=== PATIENT | female | born 2000 | race Caucasian/White ===

== ENCOUNTER 2024-08-22 12:40 | Emergency (ER) | payer MEDICAID, SELFPAY ==
[2024-08-22] VITALS (10 sets, daily range): BP systolic 92–132; BP diastolic 55–90; PULSE 95–132; RESP 16–20; TEMP 37; O2SAT 97–100; BMI 24.9; BMI 26.5
[2024-08-22 13:16] LABS: UTC Influenza A Antigen Negative (Negative)
[2024-08-22 13:17] LABS: UTC Influenza B Antigen Negative (Negative)
--- NOTE | 2024-08-22 13:20 | EXP.UTC ---
Discharge Plan Disposition Patient Disposition: Home, Self-Care Condition: Good Prescriptions Prescriptions: New doxycycline hyclate 100 mg capsule 100 mg PO BID 10 Days Qty: 20 0RF Referrals Follow up/Referrals: Provider,Referral, MD [Primary Care Provider] - See instructions Activity Restrictions/Add. Instructions Additional Instructions/Restrictions: Follow-up with your PCP within 48 hours for recheck. If you have any worsening signs or symptoms return to the ER as needed. Clinical Impressions Clinical Impression: Abdominal pain, acute Stand Alone Forms Stand Alone Forms: Work/School Release Instructions Patient Instructions: DI for Acute Abdominal Pain Print Language Print Language: Thai Discharge ED Provider: Domonique Montez [facility] HPI <[place] APRN - Last Filed: 08/22/24 20:19> General Chief complaint: Abdominal Pain Stated complaint: v/d chills headache cough Mode of Arrival: Ambulatory Source of Information: Patient Limitations: No Limitations Time Seen by Provider: 08/22/24 13:20 Description of Symptoms (Recalled from Triage Doc. by RN): PATIENT C/O VOMITING, CHILLS, HEADACHE, AND STOMACH PAIN THAT STARTED LAST NIGHT HEENT Symptoms (Recalled from RN notes): Yes Resp Symptoms (Recalled from RN notes): No Skin Symptoms (Recalled from RN notes): No MS Symptoms (Recalled from RN notes): No Functional Status (Recalled from RN notes): WNL History of Present Illness Provider Complaint: Patient states that her brother tested positive for flu yesterday States that she woke up in the middle of the night with chills, stomach pain, headache and N/V States that she took zofran and it did help with her vomiting but her stomach is killing her states that stomach hurts all over Related Data Previous Rx's ?Medication ?Instructions ?Recorded doxycycline hyclate 100 mg capsule 100 mg PO BID 10 days #20 caps 08/22/24 Allergies Allergy/AdvReac Type Severity Reaction Status Date / Time No Known Allergies Allergy Verified 08/22/24 13:05 Worker's Comp Is this a Worker's Comp case?: No PFSH <[place] APRN - Last Filed: 08/22/24 20:19> [facility] Disclaimer: The information contained in this section may have been updated after the patient was seen, as this information can be updated by other users. Medical History (Updated 08/22/24 @ 17:23 by AMANDA Titus) Seizures Anxiety Surgical History (Updated 08/22/24 @ 13:06 by Meredith Dominguez RN) History of cholecystectomy Social History (Updated 08/22/24 @ 17:32 by AMANDA Titus) Smoking Status: Current every day smoker alcohol intake: current current occupational status: employed Travel in the last 8 weeks: None Have you lived/traveled outside US in past 30 days?: No Contact w/someone who lives/traveled outside US past 30 days?: No Exposure to someone with infectious disease in past 14 days?: No Do you have a fever (greater than 100.4 F or 38 C)?: No Have you tested positive for COVID-19: No Exposed to someone with COVID-19 in past 14 days?: No Do you have a sore throat?: Yes Do you have a cough?: Yes Do you have any weakness?: No Do you have any diarrhea?: No Are you experiencing any unusual bleeding?: No Do you have any muscle aches/pain?: No Do you have any abdominal pain?: No Are you experiencing loss of taste or smell?: No <[place] APRN - Last Filed: 08/22/24 20:19> ROS Obtained: Yes All systems reviewed & no additional complaints except as documented and Yes Systems reviewed as appropriate & no additional complaints except as documented Constitutional Constitutional: Reports system reviewed and no additional complaints, except as documented, Reports as per HPI, Reports chills, Reports fever(s) and Reports headache(s) ENT Ears, Nose, Mouth, and Throat: Reports system reviewed and no additional complaints, except as documented, Reports as per HPI and Reports headache(s) Cardiovascular Cardiovascular: Reports system reviewed and no additional complaints, except as documented and Reports as per HPI Respiratory Respiratory: Reports system reviewed and no additional complaints, except as documented and Reports as per HPI Gastrointestinal Gastrointestingal: Reports system reviewed and no additional complaints, except as documented, as per HPI, abdominal pain, nausea and vomiting (took zofran prior to arrival ) Neurologic Neurologic: Reports headache(s) Physical Exam <C[place]el [place] APRN - Last Filed: 08/22/24 20:19> General General appearance: alert and anxious (rocking on exam table holding stomach crying) Respiratory Respiratory exam: Present normal lung sounds bilaterally; Absent respiratory distress or wheezes Cardiovascular Cardiovascular exam: Present regular rate and tachycardia Abdominal Exam Abdominal exam: Present soft and tenderness (reports diffuse pain and tenderness with palpation) Neurological Exam Neurological exam: Present alert and oriented X3 Medical Decision Making <[place] APRN - Last Filed: 08/22/24 20:19> Medical Records Screening: Per USPSTF and CDC recommendations, given the prevalence of disease in our region, it is our hospital?s policy to screen for HIV and viral Hepatitis for all patients aged 18 and over and those with ongoing risk factors. Varghese Inquiry Pt receiving controlled substance: No V[place]se was queried for this patient: No Vital Signs: 08/22/24 12:55 Temperature 98.6 F Temperature Source Oral Pulse Rate [Left Brachial] 132 H Respiratory Rate 19 Blood Pressure [Left Arm] 110/76 Blood Pressure Mean [Left Arm] 87 Blood Pressure Source [Left Arm] Automatic Cuff Blood Pressure Position [Left Arm] Sitting 02 Sat by Pulse Oximetry 98 Oxygen Delivery Method Room Air Lab Data Lab results reviewed: Yes I reviewed the patient's lab results. Lab Results 08/22/24 12:58: Influenza Type A Ag Negative, Influenza Type B Ag Negative 08/22/24 13:35 08/22/24 13:35 Medical Decision Narrative: Patient holding stomach, crying saying that her stomach was killing her States she awoke in the middle of the night with stomach pain, chills, and n/v had zofran at home and took on prior to arrival and it did help with vomiting but still having stomach pain, states stomach hurts all over HR elevated, discussed with patient and will transfer to the ED Called Ed and patient moved to the ED for further work up and evaluation <AMANDA Titus - Last Filed: 08/22/24 17:29> Medical Records Medical records reviewed: Yes I reviewed the patient's medical records. Vital Signs: 08/22/24 12:55 Temperature 98.6 F Temperature Source Oral Pulse Rate [Left Brachial] 132 H Respiratory Rate 19 Blood Pressure [Left Arm] 110/76 Blood Pressure Mean [Left Arm] 87 Blood Pressure Source [Left Arm] Automatic Cuff Blood Pressure Position [Left Arm] Sitting 02 Sat by Pulse Oximetry 98 Oxygen Delivery Method Room Air Lab Data Lab Results 08/22/24 12:58: Influenza Type A Ag Negative, Influenza Type B Ag Negative
--- NOTE | 2024-08-22 13:25 | PC.NURSE ---
PATIENT SENT TO ER PER Josue BLANKENSHIP APRN FOR FURTHER EVALUATION. REPORT GIVEN TO DR. PEACE BY Josue BLANKENSHIP APRN. PATIENT AMBULATED TO ER WITH [facility] AT THIS TIME. FAMILY AT BEDSIDE
--- NOTE | 2024-08-22 13:40 | CT_ITS ---
FINAL REPORT TECHNIQUE: After the administration of intravenous contrast, axial images were obtained through the abdomen and pelvis by computed tomography. The study was performed with techniques to keep radiation dose as low as reasonably achievable, (ALARA). Individual dose reduction techniques using automated exposure control or adjustment of mA and/or kV according to the patient's size were employed. CLINICAL HISTORY: Suprapubic abdominal pain COMPARISON: None FINDINGS: Abdomen: The lung bases are clear. There is fatty infiltration of the liver. The gallbladder is absent. The spleen, pancreas, adrenals and kidneys appear unremarkable. The aorta is normal in caliber. There is no free fluid or adenopathy. Pelvis: The appendix measures 6 mm. The uterus is anteverted. There is no pelvic inflammation. The urinary bladder is unremarkable. There is no free fluid or adenopathy. IMPRESSION: Fatty liver without acute intra-abdominal process. Reviewed, Interpreted and Dictated by Bib Bahena MD Transcribed by Francisca Berger Authenticated and [facility]
--- NOTE | 2024-08-22 13:40 | ED_ITS ---
<Statement entered by Domonique Montez MD - 08/22/24 17:24> I was consulted by the KLEBER, and we discussed the complexity of problems being addressed. I approved the treatment and management plan for this patient's care in the emergency department, thus performing a substantive portion of the medical decision making. Domonique Montez MD Discharge Plan Disposition Patient Disposition: Still a Patient Condition: Good Prescriptions Prescriptions: New doxycycline hyclate 100 mg capsule 100 mg PO BID 10 Days Qty: 20 0RF Referrals Follow up/Referrals: Provider,Referral, [Primary Care Provider] - See instructions Activity Restrictions/Add. Instructions Additional Instructions/Restrictions: Follow-up with your PCP within 48 hours for recheck. If you have any worsening signs or symptoms return to the ER as needed. Clinical Impressions Clinical Impression: Abdominal pain, acute Instructions Patient Instructions: DI for Acute Abdominal Pain Print Language Print Language: Venezuelan Discharge ED Provider: Domonique Montez General Adult HPI General Chief complaint: Abdominal Pain Stated complaint: v/d chills headache cough Time Seen by Provider: 08/22/24 13:20 Mode of Arrival: Ambulatory Source of Information: Patient Limitations: No Limitations Description of Symptoms (Recalled from ER Triage Doc. by RN): PATIENT C/O VOMITING, CHILLS, HEADACHE, AND STOMACH PAIN THAT STARTED LAST NIGHT History of Present Illness HPI narrative: Patient presents for evaluation of abdominal pain. Patient reports that she began having abdominal pain yesterday evening that is located in the suprapubic area. She has since began developing vomiting chills headache stomach pain. She reports that she has had a normal bowel movement is passing gas and is tolerating oral intake. She denies dysuria hematuria chest pain shortness of breath hemoptysis hematochezia melena hematemesis hematuria. Related Data Previous Rx's ?Medication ?Instructions ?Recorded doxycycline hyclate 100 mg capsule 100 mg PO BID 10 days #20 caps 08/22/24 Allergies Allergy/AdvReac Type Severity Reaction Status Date / Time No Known Allergies Allergy Verified 08/22/24 13:05 [facility] Disclaimer: The information contained in this section may have been updated after the patient was seen, as this information can be updated by other users. Medical History (Updated 08/22/24 @ 17:23 by AMANDA Titus) Seizures Anxiety Surgical History (Updated 08/22/24 @ 13:06 by Meredith Dominguez RN) History of cholecystectomy Social History Smoking Status: Current every day smoker alcohol intake: current current occupational status: employed Travel in the last 8 weeks: None ROS Obtained: Yes Systems reviewed as appropriate & no additional complaints except as documented Physical Exam General General appearance: alert Respiratory Respiratory exam: Present normal lung sounds bilaterally Cardiovascular Cardiovascular exam: Present regular rate Neurological Exam Neurological exam: Present alert and oriented X3 Medical Decision Making Medical Records Medical records reviewed: Yes I reviewed the patient's medical records. Screening: Per USPSTF and CDC recommendations, given the prevalence of disease in our region, it is our hospital?s policy to screen for HIV and viral Hepatitis for all patients aged 18 and over and those with ongoing risk factors. Varghese Inquiry Pt receiving controlled substance: No Vital Signs: 08/22/24 12:55 08/22/24 13:23 08/22/24 13:29 Temperature 98.6 F 98.6 F Temperature Source Oral Oral Pulse Rate 117 H Pulse Rate [Left Brachial] 132 H 121 H Respiratory Rate 19 20 Blood Pressure 132/90 Blood Pressure [Left Arm] 110/76 108/63 L Blood Pressure Mean 99 Blood Pressure Mean [Left Arm] 87 78 Blood Pressure Source [Left Arm] Automatic Cuff Automatic Cuff Blood Pressure Position [Left Arm] Sitting 02 Sat by Pulse Oximetry 98 100 98 Oxygen Delivery Method Room Air Room Air 08/22/24 13:36 08/22/24 14:00 08/22/24 14:30 Temperature Temperature Source Pulse Rate 108 H 108 H 105 H Pulse Rate [Left Brachial] Respiratory Rate Blood Pressure 108/63 L 93/61 L 101/55 L Blood Pressure [Left Arm] Blood Pressure Mean 78 71 67 Blood Pressure Mean [Left Arm] Blood Pressure Source [Left Arm] Blood Pressure Position [Left Arm] 02 Sat by Pulse Oximetry 99 99 97 Oxygen Delivery Method 08/22/24 15:00 08/22/24 15:30 08/22/24 16:00 Temperature Temperature Source Pulse Rate 102 H 99 H 104 H Pulse Rate [Left Brachial] Respiratory Rate Blood Pressure 101/57 L 92/61 L 103/64 L Blood Pressure [Left Arm] Blood Pressure Mean 67 Blood Pressure Mean [Left Arm] Blood Pressure Source [Left Arm] Blood Pressure Position [Left Arm] 02 Sat by Pulse Oximetry 98 98 98 Oxygen Delivery Method Lab Data Lab results reviewed: Yes I reviewed the patient's lab results. Lab Results 08/22/24 12:58: Influenza Type A Ag Negative, Influenza Type B Ag Negative 08/22/24 13:35: WBC 10.0, RBC 4.92, Hgb 14.2, Hct 42.6, MCV 86.6, MCH 28.9, MCHC 33.3, RDW 12.7, Plt Count 299, MPV 10.2, Neut % (Auto) 92.4 H, Lymph % (Auto) 1.8 L, [place] % (Auto) 5.0, Eos % (Auto) 0.1, Baso % (Auto) 0.3, Neut # (Auto) 9.2 H, Lymph # (Auto) 0.2 L, [place] # (Auto) 0.5, Eos # (Auto) 0.0, Baso # (Auto) 0.0, Total Counted 100, Neutrophils % (Manual) 97 H, Lymphocytes % (Manual) 2 L, M onocytes % (Manual) 1 L, Platelet Estimate Normal, RBC Morphology Normal, Sodium 136, Potassium 3.7, Chloride 103, Carbon Dioxide 21 L, Anion Gap 15.7 H, BUN 4 L , Creatinine 0.60, Estimated Creat Clear 153, Estimated GFR 125, Est GFR ( Amer) 151, Glucose 106 H, Lactate 2.3 H, Calcium 10.0, Total Bilirubin 0.2, AST 32, ALT 30, Alkaline Phosphatase 61, Total Protein 7.8, Albumin 4.8, Globulin 3.0, Albumin/Globulin Ratio 1.6, Lipase 40, Serum HCG, Qual Negative, HCV Ab LARON w/Rflx PCR Qn Negative, HIV Ag/Ab Combo Qual Negative 08/22/24 14:41: Urine Color Yellow, Urine Appearance Clear, Urine pH 7.5, Ur Specific [place] 1.020, Urine Protein Trace, Urine Glucose (UA) Negative, Urine Ketones 2+, Urine Blood Trace-i, Urine Nitrate Negative, Urine Bilirubin Negative, Urine Urobilinogen 1.0, Ur Leukocyte Esterase Trace, Urine RBC 5-10, Urine WBC 10-20, Ur Squamous Epith Cells 20-50, Urine Bacteria 1+, Urine Mucus 4+ 08/22/24 13:35 08/22/24 13:35 Orders (Tests/Meds): ED MEDICATIONS Discontinued Medications Generic Name Dose Route Start Last Admin Trade Name Freq PRN Reason Stop Dose Admin Acetaminophen 1,000 mg 08/22/24 13:40 08/22/24 13:52 Acetaminophen 1,000mg/100ml Vial IV 08/22/24 13:41 1,000 mg ONCE ONE Administration Ceftriaxone Sodium 500 mg 08/22/24 17:02 08/22/24 17:09 Ceftriaxone 500mg Vial IM 08/22/24 17:03 500 mg ONCE ONE Administration Doxycycline Hyclate 100 mg 08/22/24 17:03 08/22/24 17:09 Doxycycline Hycl 100 Mg Tablet PO 08/22/24 17:04 100 mg ONCE ONE Administration Hydromorphone HCl 0.5 mg 08/22/24 13:40 08/22/24 13:52 Hydromorphone 2mg/Ml Syringe IV 08/22/24 13:41 0.5 mg ONCE ONE Administration Sodium Chloride 1,000 mls @ 999 mls/hr 08/22/24 13:40 08/22/24 13:52 Sod Chlor 0.9% 1000ml Bag IV 08/22/24 14:40 999 mls/hr .Q1H1M ONE Administration Iopamidol 75 ml 08/22/24 15:08 08/22/24 15:09 Iopamidol-370 (76%);100ml Bottle IV 08/22/24 15:09 75 ml ONCE ONE Administration Ketorolac Tromethamine 15 mg 08/22/24 13:40 08/22/24 13:53 Ketorolac 30mg/Ml Vial IV 08/22/24 13:41 15 mg ONCE ONE Administration Lidocaine HCl 0 ml 08/22/24 17:02 08/22/24 17:09 Lidocaine 1% 5ml Pf Vial IM 08/22/24 17:03 1.8 ml ONCE ONE Administration Ondansetron HCl 4 mg 08/22/24 13:53 08/22/24 13:54 Ondansetron 4mg/2ml Vial IV 08/22/24 13:54 4 mg ONCE ONE Administration Sodium Chloride 10 ml 08/22/24 15:08 08/22/24 15:09 Sodium Chloride 0.9% 10ml Syr (Rad Only) IV 08/22/24 15:09 10 ml ONCE ONE Administration ORDERS Category Date Time Status CT abdomen pelvis w con Stat Cat Scan 08/22/24 13:40 Completed US transvaginal Stat Exams 08/22/24 16:10 Completed CBC w/Auto Diff [Complete Blood Count Auto Diff] Stat Lab 08/22/24 13:35 Completed CMP [Comprehensive Metabolic Panel] Stat Lab 08/22/24 13:35 Completed HCG Qualitative, Serum Stat Lab 08/22/24 13:35 Completed HIV Combo Stat Lab 08/22/24 13:35 Completed Hepatitis C Ab Qual. W/ RFX Stat Lab 08/22/24 13:35 Completed Lactic Acid Stat Lab 08/22/24 13:35 Completed Lipase Stat Lab 08/22/24 13:35 Completed UA [Urinalysis and Microscopic] Stat Lab 08/22/24 14:41 Completed Urine Culture Stat Micro 08/22/24 14:41 Received Medical Decision Narrative: In summary patient is a 24-year-old female who presents to the emergency department for evaluation of abdominal pain. Patient is initially normotensive with a pressure of 110/76 heart rate 132 breathing 19 times a minute satting at 98% on room air upon arrival, afebrile at 98.6. Physical exam is remarkable for very tender suprapubic abdominal tenderness without rebound or guarding or rigidity. Bowel sounds normal active.. Differential diagnosis includes ovarian cyst versus ovarian torsion versus urinary tract infection versus appendicitis versus colitis etc. Initial workup will be conducted with hematologic labs urinalysis CT scan abdomen pelvis. Initial interventions include crystalloid bolus Toradol Tylenol Zofran Dilaudid. Initial workup reviewed by me shows the patient has a normal white count normal hemoglobin and hematocrit but does have an absolute neutrophil count of 9.2, CMP shows a lactate of 2.3, the remainder of her hematologic labs are nonactionable including normal lipase and negative test. My informal interpretation of her CT scan abdomen pelvis shows questionable right adnexal cystic ovary versus possible overlay of bowel around the ovary but no other acute abnormalities. Upon repeat evaluation patient reported significant improvement however given her CT findings I went ahead and ordered a transvaginal ultrasound to rule out ovarian torsion. Radiologist read that it is a normal adnexal exam with no evidence of torsion or other abnormality. Given this I had interactive discussion regarding patient management. Patient's significant other who is present states that he was recently treated for Ureaplasma infection and while patient is not describing similar symptoms I will go ahead and treat her as well. She is to follow-up with her PCP for recheck. She is to follow-up with the portal for her culture results. Critical Care Critical Care Time Critical Care Time: No
[2024-08-22] MEDS: 0.9 % SODIUM CHLORIDE 1000ML 1,000 ML 999 ML IV (13:52)
[2024-08-22] MEDS: ACETAMINOPHEN 1,000MG/100ML VIAL 1000 MG IV (13:52)
[2024-08-22] MEDS: HYDROMORPHONE 2MG/ML SYRINGE 0.5 MG IV (13:52)
[2024-08-22] MEDS: KETOROLAC 30MG/ML VIAL 15 MG IV (13:53)
[2024-08-22] MEDS: ONDANSETRON 4MG/2ML VIAL 4 MG IV (13:54)
[2024-08-22 13:58] LABS: Basophils % 0.3 % (0.1-2.0); Eosinophils % 0.1 % (0.1-12.0); Hematocrit 42.6 % (37.0-47.0); Hemoglobin 14.2 g/dL (12.2-16.2); Lymphocytes # 0.2 K/mm3 (0.7-4.5); Lymphocytes % 1.8 % (10-50); Mean Corpuscular HGB Conc 33.3 g/dL (31.8-35.4); Mean Corpuscular Hemoglobin 28.9 pg (27.0-31.2); Mean Corpuscular Volume 86.6 fl (81-99); Mean Platelet Volume 10.2 fl (7.4-10.4); Monocytes # 0.5 K/mm3 (0.1-1.0); Neutrophils # 9.2 K/mm3 (1.8-7.8); Neutrophils % 92.4 % (37.0-80.0); Platelet Count 299 K/mm3 (142-424); Red Blood Count 4.92 M/mm3 (4.20-5.40); Red Cell Distribution Width 12.7 % (11.5-17.5)
[2024-08-22 14:03] LABS: Alanine Aminotransferase 30 U/L (12-78); Albumin Level 4.8 g/dl (3.5-5.0); Albumin/Globulin Ratio 1.6 (1.1-1.8); Alkaline Phosphatase 61 U/L (38-126); Anion Gap 15.7 mEq/L (5-15); Aspartate Amino Transferase 32 U/L (14-36); Bilirubin,Total 0.2 mg/dl (0.2-1.3); Blood Urea Nitrogen 4 mg/dl (7-17); Carbon Dioxide 21 mmol/L (22.0-30.0); Chloride 103 mmol/L (98-107); Creatinine Clearance Estimated 153 mL/min (50-200); Estimated Glomerular Filt Rate 125 ml/min (>60); GFR (African American) 151 ML/MIN (>60); Glucose 106 mg/dl (74-100); Lipase 40 U/L (23-300); MANUAL DIFFERENTIAL MANUAL DIFFERENTIAL (MANUAL DIFF); Potassium 3.7 mmoL/L (3.5-5.1); Sodium 136 mmol/L (136-145); Total Protein,Serum 7.8 g/dl (6.3-8.2)
[2024-08-22 14:06] LABS: Lactic Acid 2.3 mmol/L (0.7-2.1)
--- NOTE | 2024-08-22 14:38 | PC.NURSE ---
pt ambulatory to restroom without complications
[2024-08-22 14:39] LABS: HCG Qualitative, Serum Negative (Negative)
[2024-08-22 14:45] LABS: Microscopic, Urine URINE MICROSCOPIC (MICROSCOPIC)
[2024-08-22 14:51] LABS: Appearance,Urine CLEAR (Clear); Blood, Urine TRACE-I (Negative); Color,Urine YELLOW (Yellow); Glucose,Urine (UA) Negative (Negative); Ketones,Urine 2+ (Negative); Leukocyte Esterase,Urine TRACE (Negative); Nitrate,Urine Negative (Negative); PH,Urine 7.5 (5.0-8.5); Protein,Urine TRACE (Negative)
[2024-08-22 14:53] LABS: Bilirubin,Urine Negative (Negative)
[2024-08-22 14:58] LABS: Lymphocytes % 2 % (10-50); Monocytes % 1 % (2-9); Neutrophils % 97 % (42-76); Platelet Estimate Normal; RBC Morphology Normal; Total Cells Counted 100
[2024-08-22 15:08] LABS: Bacteria,Urine 1+ /lpf; Squamous Epithelial Cell,Urine 20-50 #/hpf (0-5)
[2024-08-22 15:09] LABS: Mucus,Urine 4+ /lpf
[2024-08-22] MEDS: IOPAMIDOL-370 (76%);100ML BOTTLE 75 ML IV (15:09)
[2024-08-22] MEDS: SODIUM CHLORIDE 0.9% 10ML SYR (RAD ONLY) 10 ML IV (15:09)
[2024-08-22 15:22] LABS: HIV Combo NEGATIVE (Negative)
[2024-08-22 15:29] LABS: Hepatitis C Ab Qual. W/ RFX NEGATIVE (Negative)
--- NOTE | 2024-08-22 16:10 | US_ITS ---
PROCEDURE INFORMATION: Exam: US Pelvis, Transvaginal, Non-Obstetric Exam date and time: 08/22/2024 4:14 PM Age: 24 years old Clinical indication: Pelvic pain; Additional info: Rlq abd pain rule out torsion TECHNIQUE: Imaging protocol: Real-time transvaginal pelvic (non-obstetric) ultrasound with image documentation. Transvaginal imaging was used for better evaluation of the endometrium, adnexa, and/or cervix. COMPARISON: CT ABDOMEN PELVIS W CON 08/22/2024 3:04 PM FINDINGS: Uterus: 7 x 3.2 x 4.6 cm in length, AP and transverse dimensions. Endometrial complex: 8 mm. Right ovary/adnexa: 2.7 x 2.8 x 1.8 cm. Right ovarian volume: 7 cc Left ovary/adnexa: 2.4 x 1.8 x 2 cm in length, transverse in AP dimensions. Left ovarian volume: 4.6 cc. Bilateral arterial and venous flow demonstrated in both ovaries. Urinary bladder: Urinary bladder is limited. Intraperitoneal space: No free fluid. Other findings: Both ovaries were demonstrated and contains small non dominant follicles. IMPRESSION: Unremarkable pelvic ultrasound.
--- NOTE | 2024-08-22 16:18 | PC.NURSE ---
pt to US via wheelchair
[2024-08-22] MEDS: LIDOCAINE 1% 5ML PF VIAL IM (17:09)
[2024-08-22] MEDS: cefTRIAXone 500MG VIAL 500 MG IM (17:09)
[2024-08-22] MEDS: DOXYCYCLINE HYCL 100 MG TABLET PO (17:09)
[2024-08-22 17:45] LABS: Reflex Lactic Add Lactic Reflex
[2024-08-24 03:47] LABS: Neisseria gonorrhoeae, NAA Negative (Negative)
== END 2024-08-22 17:39 | disposition home or self-care (01) ==
LOC: UTC 12:46 → ER 13:23
PROVIDERS: Nurse Practitioner; Physician Assistant; Emergency Provider Student in an Organized Health Care Education/Training Program
DX: R10.9 Unspecified abdominal pain (principal); R11.10 Vomiting, unspecified; R19.7 Diarrhea, unspecified; R51.9 Headache, unspecified; R68.83 Chills (without fever)
CPT/HCPCS: 74177; 76830; 80053; 81001; 83605; 83690; 84703; 85007; 85025; 85027; 86803; 87086; 87389; 87491; 87591; 87804; 96361; 96372; 96374; 96375; 99285; J0131; J0696; J1171; J1885; J2405; J7030; Q9967